=== PATIENT | female | born 2005 | race Caucasian/White ===

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

== ENCOUNTER → 2025-02-20 08:48 | Outpatient (BNVA) | payer OTHER, SELFPAY | PROVIDERS: PCP Pediatrics Adolescent Medicine; Visit Provider Nurse Practitioner | DX: Z30.9 Encounter for contraceptive management, unspecified (principal); R39.89 Other symptoms and signs involving the genitourinary system | CPT/HCPCS: 81000; 81025; 87491; 87591; 87661 ==